=== PATIENT | female | born 1945 | race Caucasian/White ===

== ENCOUNTER → 2024-02-27 08:31 | Outpatient (REF) | payer MEDICARE, BC, SELFPAY | LOC: HWRAD 08:31 | PROVIDERS: ATTENDING PHYSICIAN Family Medicine | DX: M54.2 Cervicalgia (principal); M25.512 Pain in left shoulder | CPT/HCPCS: 72052; 73030 ==

== ENCOUNTER → 2024-03-31 07:18 | Outpatient (REF) | payer MEDICARE, BC, SELFPAY | LOC: WDC 07:18 | PROVIDERS: ATTENDING PHYSICIAN Surgery; FAMILY PHYSICIAN Family Medicine | DX: Z12.31 Encounter for screening mammogram for malignant neoplasm of breast (principal); Z85.3 Personal history of malignant neoplasm of breast | CPT/HCPCS: 77063; 77067 ==

== ENCOUNTER → 2024-04-09 16:52 | Outpatient (REF) | payer MEDICARE, BC, SELFPAY | LOC: PAVMRI 16:52 | PROVIDERS: ATTENDING PHYSICIAN Physical Medicine & Rehabilitation; FAMILY PHYSICIAN Family Medicine | DX: M54.12 Radiculopathy, cervical region (principal) | CPT/HCPCS: 72141 ==

== ENCOUNTER → 2024-04-29 11:33 | Outpatient (REF) | payer MEDICARE, BC, SELFPAY | LOC: HWCARD 11:33 | PROVIDERS: ATTENDING PHYSICIAN Physical Medicine & Rehabilitation; FAMILY PHYSICIAN Family Medicine | DX: Z01.818 Encounter for other preprocedural examination (principal) | CPT/HCPCS: 93005 ==

== ENCOUNTER 2024-06-11 09:35 | Emergency (ER) | payer MEDICARE, BC, SELFPAY ==
--- NOTE | 2024-06-11 09:36 | ED.GENMED ---
History of Present Illness
General
Chief Complaint: Fainting/Passed Out
Time Seen by Provider: 06/11/24 09:36
History of Present Illness
History of Present Illness:
TIME OF INITIAL ENCOUNTER: 9:40 AM
HPI: Earlier today, while at [employer] at an exercise class, she passed out. She states that she is prone to passing out and passes out on average once per year. She never had any associated chest pain or shortness of breath. She saw supervisor hanging and trimming
in the past related to passing out and reports having a normal Holter monitor. There was no injury when she passed out. She came in by ambulance. Currently she feels 'a little lightheaded'. Her blood pressure was low for EMS with systolics in
the 80s. She states that she has 'low sodium' and is on fluid restriction.
EXAM:
GENERAL: Just slightly weak in appearance but overall well-appearing, systolics in the 90s upon arrival
HEENT: Moist oral mucosa
CARDIOVASCULAR: No murmurs, slightly bradycardic heart rate, regular rhythm, No chest wall tenderness
PULMONARY: No respiratory distress, breath sounds are clear and equal
ABDOMEN: Soft with no peritoneal signs, no tenderness
NEUROLOGIC: Good strength all extremities, no coordination deficits
PSYCHIATRIC: Appropriate mental status, normal insight and judgement
EXTREMITIES: Nontender, no edema, moves all extremities equally
SKIN: No rash, no lesions
NUMBER AND COMPLEXITY OF PROBLEMS ADDRESSED AT THE ENCOUNTER
� Chronic conditions affecting care: Right breast cancer, hyperlipidemia, depression
� Acute Exacerbation and/or Progression of Chronic Illness: This is an acute problem
� Differential Diagnosis includes: Hyponatremia, dysrhythmia, hypoglycemia, dehydration, VICTORIA
AMOUNT AND/OR COMPLEXITY OF DATA TO BE REVIEWED AND ANALYZED
� I performed an independent evaluation of and my interpretation is:
EKG: Sinus 53, normal axis, no acute ST abnormality, first-degree AV block
CT:
X-rays:
Laboratory Studies: White count and hemoglobin unremarkable, chemistries unremarkable
Other:
� Review of other/old records: I reviewed records, the patient had a ED visit in 2015 and 2016 related to dizziness, the patient also had relatively unremarkable carotid ultrasound in 2018
� Clinical information was obtained by an independent historian: EMS
� Prescriptions/Medications Considered but not given:
� Further testing considered but not performed:
RISK OF COMPLICATIONS AND/OR MORBIDITY OR MORTALITY OF PATIENT MANAGEMENT
� Social determinants of health affecting care: Resides at [facility]
� Discussion with other providers: Notified Dr. Cherry of the patient's visit as she has been seen by Dr. Sherwood states his office will call her to arrange close follow-up
� Escalation of care including admission/observation vs risk of discharge considered: The patient reportedly had systolics in the 80s for EMS and 96 systolic upon arrival. She was given IV fluids. White count and hemoglobin
unremarkable.
ANY OTHER UPDATES:
11:30 AM: While on the monitor, heart rate as low as 44 but for the most part in the 50s. She remains asymptomatic currently. Overall improved with IV fluids. She is not on any beta-glenda/calcium channel glenda.
Past History
Past History
ED Past Medical History: Cancer, Other (arthritis) and Other (History of cataracts, glaucoma, breast cancer)
ED Past Surgical History: Other (Plastic surgery to face following a dramatic injury, bunion surgery, cataract surgery, wrist repair with pins and plate, a right lumpectomy with lymph node dissection, and the left subcutaneous port placement.)
Social History
Tobacco: Non-smoker
Alcohol: Occasional
Personal:
Living: other (With friend)
Employment: Retired
Family History
Family History: CAD
Phy Exam
Physical Exam
Physical Exam:
See HPI
Course
Orders/Labs/Results
Orders:
Orders
06/11/24 09:46
Electrocardiogram (*1) Urgent
Reason for Study: Syncope
0.9% Sodium Chloride 500 ml [Nss] 500 ml IV BOLUS
06/11/24 09:47
EKG- Treatment ONCE
06/11/24 09:48
Complete Blood Count/With Diff Urgent
06/11/24 10:13
Basic Metabolic Panel Urgent
Magnesium Urgent
Abnormal Lab Results
06/11/24 06/11/24
09:48 10:13
WBC 4.4 L 10^3/uL
(4.8-10.8)
RBC 3.97 L 10^6/uL
(4.20-5.40)
Hct 36.0 L %
(37.0-47.0)
BUN 24 H mg/dl
(7-17)
Glucose 122 H mg/dl
(70-99)
06/11/24 09:48
06/11/24 10:13
Vital Signs
Initial and Last Documented VS:
Initial Vital Signs
Pulse Resp BP Pulse Ox
59 21 96/58 100
06/11/24 09:42 06/11/24 09:42 06/11/24 09:42 06/11/24 09:42
Last Documented Vital Signs
Temp Pulse Resp BP Pulse Ox
36.4 C 47 13 117/65 100
06/11/24 09:43 06/11/24 11:00 06/11/24 11:00 06/11/24 11:00 06/11/24 11:00
*Critical Care Note
Total Time (30-74mins, 75-104mins- exclusive of procedures): Not Applicable
ED Attending Note
-
Portions of this chart may have been created with voice recognition software.� Occasional wrong word or��sound alike� substitutions may have occurred due to the inherent limitations of voice recognition software.
Discharge Plan
Departure
Patient Disposition: Home (Routine Discharge)
Date of Disposition: 06/11/24
Time of Disposition: 11:36
Patient with high blood pressure during this ER visit?: Yes
Discharge Problem:
Syncope
Instructions: Syncope (Fainting) (DC)
Prescriptions:
No Action
Ambien
5 mg PO PRN PRN (Reason: insomnia)
Estring
2 mg VAG .EVERY 90 DAYS
Simvastatin
10 mg PO HS
Patient Comments:
unsure of dose
Valacycovir
1 gm PO PRN PRN (Reason: herpes (cold sores))
Patient Comments:
its been months
escitalopram oxalate 10 MG tablet
10 mg PO DAILY@1999 Qty: 0 0RF
peg 400-propylene glycol (PF) [Systane (PF)] 1 EACH dropperette
1 ea RIGHT EYE TID
cholecalciferol (vitamin D3) [Vitamin D3] 2,000 UNIT capsule
1 tab PO DAILY
Patient Comments:
unsure of dose
calcium carbonate-vitamin D3 [Caltrate 600 plus D] 1 EACH tablet,chewable
1 ea PO DAILY
Patient Comments:
Calcium 1200mg, Vitamin D 1000iu
fluorometholone [FML Forte] 1 DROP drops,suspension
1 drp ophthalmic (eye) DAILY
Patient Comments:
right eye
aspirin 81 MG tablet,delayed release (DR/EC)
81 mg PO DAILY
timolol [Betimol] 5 ML drops
1 drp ophthalmic (eye) BID
Referrals:
nAdre Tucker MD [Active] - Follow up in 1 week
Nelida Dawkins MD [Family Provider] -
Activity Restrictions/Additional Instructions:
Your basic blood work including sodium level was normal. In the past, you saw Dr. Gonzales for Holter monitor. I notified his associate today, Dr. Cherry who says that their office will call you to arrange follow-up. Return here if worse or other
concerns. I recommend no significant amount of exercising until seen by the supervisor hanging and trimming.
Interventions
Interventions:
*Risk Screen - Suicide Last Done: 06/11/24 09:43
*General Assessment Last Done: 06/11/24 09:43
*Neglect/Abuse Screening Last Done: 06/11/24 09:43
ED- Fall Risk Assessment Last Done: 06/11/24 09:43
*Nursing Disposition Last Done: 06/11/24 11:54
ED- Cardiac Assessment Last Done: 06/11/24 09:43
ED- Neurological Assessment Last Done: 06/11/24 09:43
Discharge Date and Time
Discharge Date/Time: 06/11/24 12:10
Print Language: [id number]
[2024-06-11 09:41] VITALS: BMI 23.4
[2024-06-11 09:42] VITALS: BP 96/58
[2024-06-11] MEDS: NSS 500 IV (09:48)
[2024-06-11 10:00] VITALS: BP 101/56
[2024-06-11 10:01] LABS: % Basophils 0.5 % (0-2); % Eosinophils 2.1 % (0-6); % Immature Granulocytes 0.2 % (0-0.5); % Lymphocytes 31.7 % (20.5-51.1); % Monocytes 4.8 % (1.7-9.3); % Neutrophils 60.7 % (42.2-75.2); Absolute Eosinophils 0.1 10^3/uL (0-0.7); Absolute Lymphocytes 1.4 10^3/uL (1.2-3.4); Absolute Monocytes 0.2 10^3/uL (0.1-0.6); Absolute Neutrophils 2.7 10^3/uL (1.4-6.5); Hemoglobin 12.3 g/dL (12.0-16.0); Mean Corp Hgb Conc. 34.2 g/dL (33.0-37.0); Mean Corpuscular Volume 90.7 fL (81.0-99.0); Mean Platelet Volume 8.6 fL (7.4-10.4); Nucleated Red Blood Cells % 0 %; Platelet Count 215 10^3/uL (130-400); Red Blood Cell Count 3.97 10^6/uL (4.20-5.40); Red Cell Dist. Width 12.9 % (11.5-14.5); White Blood Cell Count 4.4 10^3/uL (4.8-10.8)
[2024-06-11 10:33] LABS: Blood Urea Nitrogen 24 mg/dl (7-17); Calcium 8.7 mg/dl (8.4-10.2); Carbon Dioxide 28 mmol/L (22-30); Chloride 100 mmol/L (98-107); Estimated Creatinine Clearance 49 ml/min; Glucose 122 mg/dl (70-99); Potassium 3.8 mmol/L (3.5-5.1); Sodium 135 mmol/L (135-145); eGFR > 60.00
[2024-06-11 11:00] VITALS: BP 117/65
== END 2024-06-11 12:10 | disposition home or self-care (01) ==
LOC: EMR 09:35
PROVIDERS: EMERGENCY PHYSICIAN Emergency Medicine; FAMILY PHYSICIAN Family Medicine
DX: R55 Syncope and collapse (principal)
CPT/HCPCS: 99283; 96360; 80048; 83735; 85025; 93005

== ENCOUNTER → 2024-07-21 10:05 | Outpatient (REF) | payer MEDICARE, BC, SELFPAY | LOC: RCS 10:05 | PROVIDERS: ATTENDING PHYSICIAN Internal Medicine Cardiovascular Disease; FAMILY PHYSICIAN Family Medicine | DX: R55 Syncope and collapse (principal) | CPT/HCPCS: 93306 ==

== ENCOUNTER 2025-01-23 13:31 | Emergency (ER) | payer MEDICARE, BC, SELFPAY ==
[2025-01-23] VITALS (7 sets, daily range): BP systolic 94–117; BP diastolic 38–79; BMI 24.5
[2025-01-23 14:01] LABS: Hematocrit 34.9 % (37.0-47.0); Hemoglobin 11.5 g/dL (12.0-16.0); Mean Corp Hgb Conc. 33.0 g/dL (33.0-37.0); Mean Corpuscular Volume 93.1 fL (81.0-99.0); Nucleated Red Blood Cells % 0 %; Platelet Count 266 10^3/uL (130-400); Red Cell Dist. Width 12.6 % (11.5-14.5)
[2025-01-23 14:16] LABS: ALT (SGPT) 25 U/L (0-35); AST (SGOT) 32 U/L (14-36); Albumin 3.8 g/dl (3.5-5.0); Alkaline Phosphatase 59 U/L (38-126); Blood Urea Nitrogen 23 mg/dl (7-17); Calcium 8.7 mg/dl (8.4-10.2); Carbon Dioxide 30 mmol/L (22-30); Chloride 99 mmol/L (98-107); Estimated Creatinine Clearance 57 ml/min; Glucose 140 mg/dl (70-99); Potassium 4.3 mmol/L (3.5-5.1); Sodium 132 mmol/L (135-145); Total Protein 6.0 g/dl (6.3-8.2); eGFR > 60.00
[2025-01-23 14:28] LABS: Troponin I < 0.012 ng/ml
[2025-01-23] MEDS: NSS 1000 IV (14:41)
--- NOTE | 2025-01-23 15:00 | ED.GENMED ---
History of Present Illness
General
Chief Complaint: Fainting/Passed Out
Source: patient and ambulance crew
Exam Limitations: none
Time Seen by Provider: 01/23/25 14:48
Nursing documentation reviewed up to this point in time: agreed with
History of Present Illness
History of Present Illness:
Note:
CHIEF COMPLAINT(S)
Fall from a chair, concerns of potential injury to the rib area.
HISTORY OF PRESENT ILLNESS
The patient is a 79-year-old female who reports a fall from a chair. She indicates that she slipped but did not lose consciousness, saying 'this time I really didnt pass out.' She acknowledged feeling nearly faint but still maintains that she did
not pass out. The fall occurred after she had eaten. She has experienced similar incidents in the past, though they were under different circumstances. Post-fall, she reports a sensation of fullness in her heart, and some discomfort in the rib area,
for which an x-ray has been ordered. The left arm is being kept elevated, supported by fluids, and she expresses the need to use it sparingly. Theres a request to remain more upright for comfort.
PHYSICAL EXAM
General: Alert, no acute distress.
Skin: Warm, dry.
Head: Normocephalic, atraumatic.
Neck: Supple, trachea midline.
Eye Ears, nose, mouth, and throat: Oral mucosa moist.
Cardiovascular: Normal peripheral perfusion, No edema.
Respiratory: Respirations are non-labored. tender at 9/10 rib
Gastrointestinal: Abdomen nondistended
Back: Normal range of motion, Normal alignment.
Musculoskeletal: Normal ROM, normal strength.
Neurological: Alert and oriented to person, place, time, and situation, No focal neurological deficit observed.
Psychiatric: Cooperative, appropriate mood & affect.
PLAN
1. Obtain a chest x-ray to assess for potential rib injury.
2. Administer fluids and advise on arm positioning to maintain comfort and support.
3. Evaluate x-ray results to determine if further intervention is necessary.
4. Discharge planning contingent upon satisfactory x-ray results, patient to be sent home if no acute issues are identified.
DIFFERENTIAL DIAGNOSIS
The Differential Diagnosis includes, in no particular order and is not limited to:
1. Orthostatic hypotension
2. Vasovagal syncope
3. Cardiac arrhythmia
4. Transient ischemic attack
5. Rib fracture
6. Contusion
7. Postprandial hypotension
8. Anxiety-related dizziness
9. Benign paroxysmal positional vertigo
10. Inner ear dysfunction
CARE-UPDATE
01/23/25 - 16:11
Patient shows right ninth and tenth rib fractures with no pneumothorax or other injuries. The patient reports feeling improved and responding well to fluids. Acute coronary syndrome, arrhythmia, or pulmonary embolism are not suspected. The patients
condition is stable, and they are deemed suitable for discharge.
EKG
My independent EKG interpretation is:
- Rhythm: Sinus bradycardia
- Heart rate: Not specified
- AL interval: First-degree AV block
- QRS duration: Normal
- QT interval: Normal
- Triplett: Not specified
- ST segment: Normal
- T wave abnormalities: None noted
- Other abnormalities: No signs of ischemia
- Stability: EKG is stable compared to the EKG from June 11, 2024
Disposition:
SUMMARY OF ENCOUNTER
The 79-year-old female patient was seen in the emergency department following a fall from a chair, reporting a near syncope episode. She described slipping but not losing consciousness. Post-fall symptoms included sensations of fullness in the heart
and rib discomfort. A chest x-ray was obtained, revealing fractures of the right ninth and tenth ribs without pneumothorax or other injuries. An EKG showed sinus bradycardia with a first-degree AV block, but no ischemic changes. Stabilization
included administration of IV fluids, after which the patient reported feeling improved.
DISPOSITION
Discharge.
ASSESSMENT
The patient presented with fall-induced right ninth and tenth rib fractures, near syncope, and no indications of pneumothorax or arrhythmia. The condition was stabilized with fluid administration, enabling safe discharge.
PLAN
1. Discharge with instructions to monitor symptoms and maintain hydration.
2. Prescribed [id number] pain control for rib discomfort.
3. Advised to use her left arm cautiously and maintain upright positioning for comfort.
INDEPENDENT REVIEW OF LABS AND INTERPRETATION OF TESTS
My independent EKG interpretation shows sinus bradycardia with a first-degree AV block, stable compared to prior recordings.
My independent chest x-ray interpretation confirms right ninth and tenth rib fractures without pneumothorax or other acute trauma.
MEDICATION RECONCILIATION
Administered intravenous fluids during the visit for stabilization. [id number] pain relief was advised for rib discomfort management.
MEDICAL DECISION MAKING
-Complexity of Data Reviewed: Chronic conditions affecting care include history of falls and potential syncope episodes. Differential diagnosis includes orthostatic hypotension, vasovagal syncope, cardiac arrhythmia, transient ischemic attack, rib
fracture, contusion, postprandial hypotension, anxiety-related dizziness, benign paroxysmal positional vertigo, and inner ear dysfunction.
-Data:
Category 1:
My independent interpretation of the EKG showed sinus bradycardia with a first-degree AV block.
My independent interpretation of the chest x-ray revealed right ninth and tenth rib fractures, with no pneumothorax evident.
-Risk:
Consideration of Admission/Observation: Escalation of care including admission/observation was considered given the complexity and risk of the patients presenting complaint, exam findings, and/or underlying comorbidities. However, ultimately I feel
the patient is safe for outpatient management with close follow-up. Reasoning: Work-up reassuring, does not reveal any acute life/organ-threatening processes, patients symptoms are well controlled upon reevaluation, reexamination is reassuring,
vitals are stable, patient is agreeable with discharge, reliable for follow-up.
DIAGNOSIS
1. Fall-related rib fractures (S22.41XA).
2. Near syncope (R55).
3. Sinus bradycardia with first-degree A-V block (I44.1).
Past History
Past History
ED Past Medical History: Cancer, Other (arthritis) and Other (History of cataracts, glaucoma, breast cancer)
ED Past Surgical History: Other (Plastic surgery to face following a dramatic injury, bunion surgery, cataract surgery, wrist repair with pins and plate, a right lumpectomy with lymph node dissection, and the left subcutaneous port placement.)
Social History
Tobacco: Non-smoker
Alcohol: Occasional
Personal:
Living: other (With friend)
Employment: Retired
Family History
Family History: CAD
Phy Exam
Physical Exam
Physical Exam:
.
Course
Orders/Labs/Results
Orders:
Orders
01/23/25 13:38
EKG [Electrocardiogram (*1)] Urgent
Reason for Study: Syncope
EKG- Treatment ONCE
01/23/25 13:54
Complete Blood Count/With Diff Urgent
Comprehensive Metabolic Panel Urgent
Troponin I Urgent
01/23/25 14:41
0.9% Sodium Chloride 1000 ml [Nss] 1,000 ml IV BOLUS
01/23/25 15:02
Ribs, Right 3 View W/PA Chest [CR Ribs-right 3 Vw W/pa Chest*] Urgent
Comment:
Reason For Exam: right lower rib pain
01/23/25 16:28
Ketorolac [Toradol] 15 mg IV NOW STA
Abnormal Lab Results
01/23/25
13:54
RBC 3.75 L 10^6/uL
(4.20-5.40)
Hgb 11.5 L g/dL
(12.0-16.0)
Hct 34.9 L %
(37.0-47.0)
Sodium 132 L mmol/L
(135-145)
BUN 23 H mg/dl
(7-17)
Glucose 140 H mg/dl
(70-99)
Total Protein 6.0 L g/dl
(6.3-8.2)
01/23/25 13:54
01/23/25 13:54
Vital Signs
Initial and Last Documented VS:
Initial Vital Signs
Pulse Ox
100
01/23/25 13:36
Last Documented Vital Signs
Temp Pulse Resp BP Pulse Ox
97.4 F 60 21 109/61 100
01/23/25 13:41 01/23/25 16:15 01/23/25 16:15 01/23/25 15:30 01/23/25 15:15
*Pulse Oximetry
SaO2: 100
Oxygen Mode of Delivery: Room air
Patient hypoxic: no
*Critical Care Note
Total Time (30-74mins, 75-104mins- exclusive of procedures): Not Applicable
ED Attending Note
-
Portions of this chart may have been created with voice recognition software.� Occasional wrong word or��sound alike� substitutions may have occurred due to the inherent limitations of voice recognition software.
Discharge Plan
Departure
Patient Disposition: Home (Routine Discharge)
Date of Disposition: 01/23/25
Time of Disposition: 16:12
Patient with high blood pressure during this ER visit?: No
Condition: Good
Discharge Problem:
Right rib fracture, Near syncope
Instructions: Rib injury in adults, Syncope (fainting), Syncope (Fainting) (DC)
Prescriptions:
No Action
Ambien
5 mg PO PRN PRN (Reason: insomnia)
Estring
2 mg VAG .EVERY 90 DAYS
Simvastatin
10 mg PO HS
Patient Comments:
unsure of dose
Valacycovir
1 gm PO PRN PRN (Reason: herpes (cold sores))
Patient Comments:
its been months
escitalopram oxalate 10 MG tablet
10 mg PO DAILY@2000 Qty: 0 0RF
peg 400-propylene glycol (PF) [Systane (PF)] 1 EACH dropperette
1 ea RIGHT EYE TID
cholecalciferol (vitamin D3) [Vitamin D3] 2,000 UNIT capsule
1 tab PO DAILY
Patient Comments:
unsure of dose
calcium carbonate-vitamin D3 [Caltrate 600 plus D] 1 EACH tablet,chewable
1 ea PO DAILY
Patient Comments:
Calcium 1200mg, Vitamin D 1000iu
fluorometholone [FML Forte] 1 DROP drops,suspension
1 drp ophthalmic (eye) DAILY
Patient Comments:
right eye
aspirin 81 MG tablet,delayed release (DR/EC)
81 mg PO DAILY
timolol [Betimol] 5 ML drops
1 drp ophthalmic (eye) BID
Referrals:
Nelida Dawkins MD [Family Provider, Family Practice]
Interventions
Interventions:
*Risk Screen - Suicide Last Done: 01/23/25 13:40
*General Assessment Last Done: 01/23/25 13:39
*Neglect/Abuse Screening Last Done: 01/23/25 13:40
*ED- Fall Risk Assessment Last Done: 01/23/25 13:39
*ED COVID-19 Vaccine History Last Done: 01/23/25 13:39
*ED Influenza Vaccine History Last Done: 01/23/25 13:39
ED- Cardiac Assessment Last Done: 01/23/25 13:46
ED- Neurological Assessment Last Done: 01/23/25 13:46
Discharge Date and Time
Print Language: [id number]
[2025-01-23] MEDS: TORADOL 15 MG IV (16:30)
== END 2025-01-23 16:48 | disposition home or self-care (01) ==
LOC: EMR 13:31
PROVIDERS: Emergency Medicine; EMERGENCY PHYSICIAN Emergency Medicine; FAMILY PHYSICIAN Family Medicine
DX: S22.41XA Multiple fractures of ribs, right side, initial encounter for closed fracture (principal); R55 Syncope and collapse; W07.XXXA Fall from chair, initial encounter; M19.90 Unspecified osteoarthritis, unspecified site; H40.9 Unspecified glaucoma; I44.0 Atrioventricular block, first degree; Z82.49 Family history of ischemic heart disease and other diseases of the circulatory system; Z85.3 Personal history of malignant neoplasm of breast; Z96.631 Presence of right artificial wrist joint; Z96.632 Presence of left artificial wrist joint; Z98.41 Cataract extraction status, right eye; Z98.42 Cataract extraction status, left eye
CPT/HCPCS: 99283; 96374; 96361; 71101; 80053; 84484; 85025; 93005

== ENCOUNTER → 2025-04-01 07:07 | Outpatient (REF) | payer MEDICARE, BC, SELFPAY | LOC: WDC 07:07 | PROVIDERS: ATTENDING PHYSICIAN Family Medicine | DX: Z12.31 Encounter for screening mammogram for malignant neoplasm of breast (principal); Z85.3 Personal history of malignant neoplasm of breast | CPT/HCPCS: 77063; 77067 ==